=== PATIENT | male | born 1950 | race Caucasian/White ===

== ENCOUNTER → 2017-06-14 | Outpatient (CLI) | payer MEDICARE ==
[~2017-06-14] MED LIST: ATOR20TA9 PO; CYCL-259 PO; HYDR-3307 PO; LISI-170 PO; LOSA25TA5 PO; METH750T87 PO; METO-99 PO; METO200T3 PO; SULF1TAB24 PO
[2017-06-14 13:36] LABS: BLOOD UREA NITROGEN 24 mg/dL (7-18)
[2017-06-14 13:37] LABS: ASPARTATE AMINO TRANSFERASE 18 U/L (15-37)
== END | disposition home or self-care (01) ==
LOC: STAR 12:29
PROVIDERS: ATTEND Surgery
DX: Z01.818 Encounter for other preprocedural examination (principal); K45.8 Other specified abdominal hernia without obstruction or gangrene; I10 Essential (primary) hypertension; E78.00 Pure hypercholesterolemia, unspecified; R06.83 Snoring; Z72.0 Tobacco use
CPT/HCPCS: 36415; 80053; 93005

== ENCOUNTER 2017-06-19 06:44 | Day surgery (SDC) | payer MEDICARE ==
[~2017-06-19] VITALS: Ht 167.6 cm; Wt 90.5 kg
[2017-06-19] MEDS ORDERED: LACTATED RINGERS 1,000 ML IV SCH (07:48)
[2017-06-19] MEDS ORDERED: MIDAZOLAM 1 MG/ML, 2ML ONE (07:50)
[2017-06-19] MEDS ORDERED: FENTANYL PF 250 MCG/5ML ONE (07:50)
[2017-06-19 07:51] VITALS: BP 123/79
[2017-06-19] MEDS ORDERED: HYDROcodone/APAP 7.5-325MG/15ML UDC PO PRN (08:30)
[2017-06-19] MEDS ORDERED: PROMETHAZINE 25 MG/ML, 1ML IV PRN (08:30)
[2017-06-19] MEDS ORDERED: hydrALAzine 20 MG/ML, 1ML IV PRN (08:30)
[2017-06-19] MEDS ORDERED: ACETAMINOPHEN 325 MG TABLET PO PRN (08:30)
[2017-06-19] MEDS ORDERED: HYDROmorphone 1 MG/ML, 1ML IV PRN (08:30)
[2017-06-19] MEDS ORDERED: EPHEDRINE 50 MG/ML, 1ML IVPush PRN (08:30)
[2017-06-19] MEDS ORDERED: MEPERIDINE/PF 25MG/0.5ML IVPush PRN (08:30)
[2017-06-19] MEDS ORDERED: MIDAZOLAM 1 MG/ML, 2ML IV PRN (08:30)
[2017-06-19] MEDS ORDERED: ONDANSETRON 2MG/ML, 2ML IVPush PRN (08:30)
[2017-06-19] MEDS ORDERED: LABETALOL 5MG/ML, 20ML IV PRN (08:30)
[2017-06-19] MEDS ORDERED: FENTANYL PF 100 MCG/2ML IV PRN (08:30)
[2017-06-19] MEDS ORDERED: OXYcodone 5 MG/5 ML ORAL.SOL UDC PO PRN (08:30)
[2017-06-19] MEDS ORDERED: SUCCINYLCHOLINE 20 MG/ML, 10ML ONE (08:48)
[2017-06-19] MEDS ORDERED: CEFAZOLIN 1,000 MG ONE (08:48)
[2017-06-19] MEDS ORDERED: PROPOFOL 10 MG/ML, 20ML ONE (08:48)
[2017-06-19] MEDS ORDERED: EPHEDRINE 50 MG/ML, 1ML ONE (08:48)
[2017-06-19] MEDS ORDERED: ONDANSETRON 2MG/ML, 2ML ONE (08:48)
[2017-06-19] MEDS ORDERED: DEXAMETHASONE 4 MG/ML, 1ML ONE (08:48)
[2017-06-19] MEDS ORDERED: PHENYLEPHRINE 10 MG/ML ONE (08:48)
[2017-06-19] MEDS ORDERED: FENTANYL PF 100 MCG/2ML ONE (10:10)
[2017-06-19] MEDS ORDERED: HYDROcodone/APAP 7.5-325MG/15ML UDC ONE (10:11)
[2017-06-19] MEDS ORDERED: BUPIVACAINE/PF-EPI 0.5% 1:200K ONE (13:35)
[2017-06-19] MEDS ORDERED: HYDROcodone/APAP 5/325 TABLET ONE (14:38)
== END 2017-06-19 14:50 ==
LOC: OUT 06:44
PROVIDERS: ATTEND Surgery
DX: K43.0 Incisional hernia with obstruction, without gangrene (principal); E78.00 Pure hypercholesterolemia, unspecified; I10 Essential (primary) hypertension; M19.90 Unspecified osteoarthritis, unspecified site; E66.3 Overweight; Z68.32 Body mass index [BMI] 32.0-32.9, adult; F17.200 Nicotine dependence, unspecified, uncomplicated; Z88.6 Allergy status to analgesic agent; Z91.048 Other nonmedicinal substance allergy status; Z80.3 Family history of malignant neoplasm of breast; Z80.8 Family history of malignant neoplasm of other organs or systems; Z83.3 Family history of diabetes mellitus; Z82.49 Family history of ischemic heart disease and other diseases of the circulatory system
CPT/HCPCS: 49561; 49568; C1781; J0330; J0690; J1100; J2250; J2370; J2405; J2704; J3010; J7120

== ENCOUNTER 2017-09-12 14:09 | Inpatient (IN) | payer MEDICARE ==
[~2017-09-12] VITALS: Ht 167.6 cm; Wt 93.6 kg
[~2017-09-12 14:09] MED LIST changes: -METO200T3 PO; +METO200T5 PO
[2017-09-12 14:45] VITALS: BP 145/100
[2017-09-12] MEDS ORDERED: LACTATED RINGERS 1,000 ML IV SCH (14:48)
[2017-09-12] MEDS ORDERED: FLUC200T4 PO (14:50)
[2017-09-12] MEDS ORDERED: LIDOCAINE 1%, 2ML SQ PRN (15:00)
[2017-09-12] MEDS ORDERED: BACITRACIN 50,000 UNIT ONE (15:01)
[2017-09-12] MEDS ORDERED: FENTANYL PF 100 MCG/2ML ONE ×3 (15:49→17:32)
[2017-09-12] MEDS ORDERED: MIDAZOLAM 1 MG/ML, 2ML ONE (15:49)
[2017-09-12] MEDS ORDERED: SUCCINYLCHOLINE 20 MG/ML, 10ML ONE (15:51)
[2017-09-12] MEDS ORDERED: PROPOFOL 10 MG/ML, 20ML ONE (15:51)
[2017-09-12] MEDS ORDERED: ROCURONIUM 10MG/ML,5ML ONE (15:51)
[2017-09-12] MEDS ORDERED: ONDANSETRON 2MG/ML, 2ML ONE ×2 (16:27→16:51)
[2017-09-12] MEDS ORDERED: METOCLOPRAMIDE 5 MG/ML, 2ML ONE (16:51)
[2017-09-12] MEDS ORDERED: PROMETHAZINE 25 MG/ML, 1ML IV PRN (17:00)
[2017-09-12] MEDS ORDERED: FLU VACC QS2017-18 (36MOS+) UP/PF 0.5 ML IM-VACC ONE (17:00)
[2017-09-12] MEDS ORDERED: ONDANSETRON 2MG/ML, 2ML IVPush PRN (17:00)
[2017-09-12] MEDS ORDERED: LABETALOL 5MG/ML, 20ML IV PRN (17:00)
[2017-09-12] MEDS ORDERED: hydrALAzine 20 MG/ML, 1ML IV PRN (17:00)
[2017-09-12] MEDS ORDERED: ACETAMINOPHEN 325 MG TABLET PO PRN (17:00)
[2017-09-12] MEDS ORDERED: OXYcodone 5 MG/5 ML ORAL.SOL UDC PO PRN (17:00)
[2017-09-12] MEDS ORDERED: ALBUTEROL SULFATE 2.5 MG/3 ML ONE (17:15)
[2017-09-12] MEDS ORDERED: ALBUTEROL/IPRATROPIUM 2.5MG/0.5MG, 3 ML ONE (17:16)
[2017-09-12] MEDS ORDERED: ACETAMINOPHEN 650 MG/20.3 ML UDC ONE (17:23)
[2017-09-12] MEDS ORDERED: OXYcodone 5 MG/5 ML ORAL.SOL UDC ONE (17:23)
[2017-09-12] MEDS ORDERED: HYDROmorphone 1 MG/ML, 1ML ONE (17:32)
[2017-09-12] MEDS: FENTANYL PF 100 MCG/2ML IV PRN ×2 (17:35→17:49)
[2017-09-12] MEDS ORDERED: VANCOMYCIN 1,900 MG in SODIUM CHLORIDE 0.9% 250 ML IV ONE (17:36)
[2017-09-12] MEDS: HYDROmorphone 1 MG/ML, 1ML IV PRN ×2 (17:37→17:50)
[2017-09-12] MEDS ORDERED: VANCOMYCIN 1,800 MG in SODIUM CHLORIDE 0.9% 250 ML IV ONE (18:00)
[2017-09-12] MEDS ORDERED: PHARMACOKINETIC CONSULTATION MC ONE (19:00)
[2017-09-12] MEDS ORDERED: morphine SULFATE 10 MG/ML, 1ML IV PRN (19:00)
[2017-09-12] MEDS ORDERED: HYDROcodone/APAP 5/325 TABLET PO PRN (19:00)
[2017-09-12] MEDS ORDERED: DO NOT STOP ANTIBIOTICS AFTER 24HRS MC SCH (19:00)
[2017-09-12] MEDS ORDERED: ONDANSETRON 2MG/ML, 2ML IV PRN (19:00)
[2017-09-12] MEDS ORDERED: PHARMACOKINETIC MONITORING MC PRN (19:00)
[2017-09-12] MEDS ORDERED: VANCOMYCIN PER PHARMACY MC PRN (19:00)
[2017-09-12 19:46] VITALS: BP 97/59
[2017-09-12] MEDS: SODIUM CHLORIDE FLUSH 10ML SYR IVF SCH (21:30)
[2017-09-12] MEDS: PIPERACILLIN/TAZO/PMX 4.5GM 100 ML IV SCH (21:30)
[2017-09-12 23:11] VITALS: BP 94/56
[2017-09-13] MEDS: LACTATED RINGERS 1,000 ML IV SCH ×2 (02:10→16:20)
[2017-09-13 03:32] VITALS: BP 102/71
[2017-09-13] MEDS: PIPERACILLIN/TAZO/PMX 4.5GM 100 ML IV SCH ×3 (04:15→15:26)
[2017-09-13 05:48] LABS: BLOOD UREA NITROGEN 13 mg/dL (7-18)
[2017-09-13] MEDS ORDERED: VANCOMYCIN 1,400 MG in SODIUM CHLORIDE 0.9% 250 ML IV SCH (06:00)
[2017-09-13 08:12] VITALS: BP 105/65
[2017-09-13] MEDS: ATORVASTATIN 80 MG TABLET PO SCH (08:16)
[2017-09-13] MEDS: SODIUM CHLORIDE FLUSH 10ML SYR IVF SCH ×2 (08:16→20:31)
[2017-09-13] MEDS: METOPROLOL TARTRATE 100 MG TABLET PO SCH (08:16)
[2017-09-13] MEDS: LOSARTAN 25MG TABLET PO SCH (08:16)
[2017-09-13] MEDS ORDERED: FLUCONAZOLE 200 MG TABLET PO SCH (09:00)
[2017-09-13 13:00] VITALS: BP 107/60
[2017-09-13] MEDS ORDERED: NYSTATIN TOPICAL POWDER 15GM TP PRN (13:00)
[2017-09-13] MEDS: CEFTAROLINE 600 MG in SODIUM CHLORIDE 0.9% 100 ML IV SCH (17:04)
[2017-09-13 17:32] LABS: HEMOGLOBIN 13.2 g/dL (13.7-18.0); WHITE BLOOD COUNT 9.5 x10^3/uL (3.4-10)
[2017-09-13 17:38] LABS: ASPARTATE AMINO TRANSFERASE 13 U/L (15-37); BLOOD UREA NITROGEN 11 mg/dL (7-18)
[2017-09-13 19:51] VITALS: BP 104/56
[2017-09-13] MEDS: KETOCONAZOLE CRM 2%, 15GM TP SCH (21:56)
[2017-09-14 02:02] VITALS: BP 109/67
[2017-09-14] MEDS: CEFTAROLINE 600 MG in SODIUM CHLORIDE 0.9% 100 ML IV SCH (04:36)
[2017-09-14] MEDS: LACTATED RINGERS 1,000 ML IV SCH ×2 (04:37→17:33)
[2017-09-14 05:55] LABS: HEMOGLOBIN 12.7 g/dL (13.7-18.0); WHITE BLOOD COUNT 8.8 x10^3/uL (3.4-10)
[2017-09-14 07:41] VITALS: BP 159/91
[2017-09-14] MEDS: KETOCONAZOLE CRM 2%, 15GM TP SCH (09:00)
[2017-09-14] MEDS: SODIUM CHLORIDE FLUSH 10ML SYR IVF SCH ×2 (09:00→21:00)
[2017-09-14] MEDS: FLUCONAZOLE 200 MG TABLET PO SCH (09:22)
[2017-09-14] MEDS: ATORVASTATIN 80 MG TABLET PO SCH (09:22)
[2017-09-14] MEDS: METOPROLOL TARTRATE 100 MG TABLET PO SCH (09:23)
[2017-09-14] MEDS: LOSARTAN 25MG TABLET PO SCH (09:23)
[2017-09-14] MEDS: DOXYCYCLINE 100MG TABLET PO SCH ×2 (10:15→21:00)
[2017-09-14 17:02] VITALS: BP 154/90
[2017-09-14 20:35] VITALS: BP 150/89
[2017-09-15 01:07] VITALS: BP 143/79
[2017-09-15 07:08] VITALS: BP 142/90
[2017-09-15] MEDS: LACTATED RINGERS 1,000 ML IV SCH (08:20)
[2017-09-15] MEDS: SODIUM CHLORIDE FLUSH 10ML SYR IVF SCH (08:31)
[2017-09-15] MEDS: DOXYCYCLINE 100MG TABLET PO SCH (08:32)
[2017-09-15] MEDS: METOPROLOL TARTRATE 100 MG TABLET PO SCH (08:32)
[2017-09-15] MEDS: LOSARTAN 25MG TABLET PO SCH (08:33)
[2017-09-15] MEDS: ATORVASTATIN 80 MG TABLET PO SCH (08:33)
[2017-09-15] MEDS: FLUCONAZOLE 200 MG TABLET PO SCH (08:33)
[2017-09-15 13:02] VITALS: BP 148/84
[2017-09-15] MEDS ORDERED: FLUC200T4 PO (16:15)
[2017-09-15] MEDS ORDERED: DOXY100C15 PO (16:18)
[2017-09-15] MEDS ORDERED: HYDR-3237 PO (16:19)
[2017-09-15] MEDS ORDERED: KETO15CR2 TP (16:34)
[2017-09-15 16:45] VITALS: BP 145/85
[2017-09-15] MEDS ORDERED: KETOCONAZOLE CRM 2%, 15GM TP SCH (21:00)
== END 2017-09-15 16:55 | disposition home or self-care (01) | DRG 907 ==
LOC: OR 14:09 → 4NOR 18:28 → OR 18:32
PROVIDERS: ADMIT Surgery; ATTEND Surgery
PROC: 0WBL0ZZ Excision of Lower Back, Open Approach (ICD-10-PCS; 2017-09-12)
PROC: 0WPF0JZ Removal of Synthetic Substitute from Abdominal Wall, Open Approach (ICD-10-PCS; principal; 2017-09-12 16:00)
DX: T85.79XA Infection and inflammatory reaction due to other internal prosthetic devices, implants and grafts, initial encounter (principal); E43 Unspecified severe protein-calorie malnutrition; B37.2 Candidiasis of skin and nail; E78.00 Pure hypercholesterolemia, unspecified; F17.210 Nicotine dependence, cigarettes, uncomplicated; B95.62 Methicillin resistant Staphylococcus aureus infection as the cause of diseases classified elsewhere; I10 Essential (primary) hypertension; Y83.2 Surgical operation with anastomosis, bypass or graft as the cause of abnormal reaction of the patient, or of later complication, without mention of misadventure at the time of the procedure; K43.2 Incisional hernia without obstruction or gangrene; Z88.8 Allergy status to other drugs, medicaments and biological substances
CPT/HCPCS: 36415; 80053; 80202; 82550; 82565; 84520; 85025; 85651; 86140; 87070; 87075; 87077; 87147; 87186; 87205; 90686; 94640; J0712; J1170; J2250; J2405; J2543; J2704; J3010; J3370; J3490; J0330; J2765; J7050; J7120

== ENCOUNTER → 2017-09-18 | Outpatient (CLI) | payer MEDICARE ==
[~2017-09-18] MED LIST changes: +DOXY100C15 PO; +FLUC200T4 PO; +HYDR-3237 PO; +KETO15CR2 TP
== END | disposition home or self-care (01) ==
LOC: WOUND 12:45
PROVIDERS: ATTEND Internal Medicine
DX: T81.31XD Disruption of external operation (surgical) wound, not elsewhere classified, subsequent encounter (principal); I10 Essential (primary) hypertension; Z86.14 Personal history of Methicillin resistant Staphylococcus aureus infection; F17.210 Nicotine dependence, cigarettes, uncomplicated; E78.00 Pure hypercholesterolemia, unspecified; Y83.8 Other surgical procedures as the cause of abnormal reaction of the patient, or of later complication, without mention of misadventure at the time of the procedure
CPT/HCPCS: 11042; G0463; WOU0463

== ENCOUNTER → 2017-10-10 | Outpatient (CLI) | payer MEDICARE | END | disposition home or self-care (01) | LOC: WOUND 13:39 | PROVIDERS: ATTEND Nurse Practitioner Family | DX: T81.31XD Disruption of external operation (surgical) wound, not elsewhere classified, subsequent encounter (principal); B37.89 Other sites of candidiasis; I10 Essential (primary) hypertension; Z86.14 Personal history of Methicillin resistant Staphylococcus aureus infection; E78.00 Pure hypercholesterolemia, unspecified; E43 Unspecified severe protein-calorie malnutrition; F17.210 Nicotine dependence, cigarettes, uncomplicated; Z72.89 Other problems related to lifestyle; Y83.8 Other surgical procedures as the cause of abnormal reaction of the patient, or of later complication, without mention of misadventure at the time of the procedure | CPT/HCPCS: 15271; Q4172 ==

== ENCOUNTER → 2017-10-17 | Outpatient (CLI) | payer MEDICARE | END | disposition home or self-care (01) | LOC: WOUND 13:32 | PROVIDERS: ATTEND Internal Medicine Infectious Disease | DX: T81.31XD Disruption of external operation (surgical) wound, not elsewhere classified, subsequent encounter (principal); B37.89 Other sites of candidiasis; E66.09 Other obesity due to excess calories; I10 Essential (primary) hypertension; Z86.14 Personal history of Methicillin resistant Staphylococcus aureus infection; E78.00 Pure hypercholesterolemia, unspecified; F17.210 Nicotine dependence, cigarettes, uncomplicated; E43 Unspecified severe protein-calorie malnutrition; Z72.89 Other problems related to lifestyle; Y83.8 Other surgical procedures as the cause of abnormal reaction of the patient, or of later complication, without mention of misadventure at the time of the procedure | CPT/HCPCS: 15271; Q4132 ==

== ENCOUNTER → 2017-10-27 | Outpatient (CLI) | payer MEDICARE | END | disposition home or self-care (01) | LOC: WOUND 11:21 | PROVIDERS: ATTEND Family Medicine | DX: T81.31XD Disruption of external operation (surgical) wound, not elsewhere classified, subsequent encounter (principal); I10 Essential (primary) hypertension; E66.09 Other obesity due to excess calories; E78.00 Pure hypercholesterolemia, unspecified; F17.210 Nicotine dependence, cigarettes, uncomplicated; Z72.89 Other problems related to lifestyle; Z68.31 Body mass index [BMI] 31.0-31.9, adult; Y83.8 Other surgical procedures as the cause of abnormal reaction of the patient, or of later complication, without mention of misadventure at the time of the procedure | CPT/HCPCS: 97597 ==

== ENCOUNTER → 2017-11-07 | Outpatient (CLI) | payer MEDICARE | END | disposition home or self-care (01) | LOC: WOUND 10:30 | PROVIDERS: ATTEND Internal Medicine | DX: T81.31XD Disruption of external operation (surgical) wound, not elsewhere classified, subsequent encounter (principal); B37.89 Other sites of candidiasis; E66.09 Other obesity due to excess calories; I10 Essential (primary) hypertension; E78.00 Pure hypercholesterolemia, unspecified; Z68.31 Body mass index [BMI] 31.0-31.9, adult; F17.210 Nicotine dependence, cigarettes, uncomplicated; Z72.89 Other problems related to lifestyle; Z86.14 Personal history of Methicillin resistant Staphylococcus aureus infection; Y83.8 Other surgical procedures as the cause of abnormal reaction of the patient, or of later complication, without mention of misadventure at the time of the procedure | CPT/HCPCS: 97597 ==

== ENCOUNTER → 2017-11-24 | Outpatient (CLI) | payer MEDICARE | END | disposition home or self-care (01) | LOC: WOUND 08:00 | PROVIDERS: ATTEND Family Medicine | DX: T81.31XD Disruption of external operation (surgical) wound, not elsewhere classified, subsequent encounter (principal); B37.89 Other sites of candidiasis; E66.09 Other obesity due to excess calories; I10 Essential (primary) hypertension; E78.00 Pure hypercholesterolemia, unspecified; F17.210 Nicotine dependence, cigarettes, uncomplicated; Z68.31 Body mass index [BMI] 31.0-31.9, adult; Z72.89 Other problems related to lifestyle; Y83.8 Other surgical procedures as the cause of abnormal reaction of the patient, or of later complication, without mention of misadventure at the time of the procedure | CPT/HCPCS: G0463; WOU0463 ==